=== PATIENT | male | born 1980 | race Caucasian/White ===

== ENCOUNTER → 2023-06-10 | Outpatient (CLI) | payer BC ==
--- NOTE | 2023-06-10 11:13 | US ---
EXAMINATION TYPE: US venous doppler duplex LE LT DATE OF EXAM: 06/10/2023 11:06 AM COMPARISON: NONE CLINICAL INDICATION: Male, 43 years old with history of M79.662 LLE; PAIN IN LEFT LOWER LEG; Patient states he heard a "pop" in his leg 6 months ago after stepping out of his work van. SIDE PERFORMED: Left TECHNIQUE: The lower extremity deep venous system is examined utilizing real time linear array sonog lj with graded compression, doppler sonography and color-flow sonography. VESSELS IMAGED: Common Femoral Vein Deep Femoral Vein Greater Saphenous Vein * Femoral Vein Popliteal Vein Small Saphenous Vein * Proximal Calf Veins (* superficial vessels) Left Leg: Negative for DVT IMPRESSION: Grayscale, color doppler, spectral doppler imaging performed of the deep veins of the lo wer extremities. There is normal flow, compressibility, vascular waveforms.
== END | disposition home or self-care (01) ==
LOC: RADUSWWP 10:38
PROVIDERS: ATTEND Internal Medicine
DX: M79.662 Pain in left lower leg (principal)